=== PATIENT | female | born 1990 | race Caucasian/White ===

== ENCOUNTER 2017-06-13 20:35 | Emergency (ER) | payer SELFPAY ==
[~2017-06-13] VITALS: Ht 160 cm; Wt 202.4 kg
[2017-06-13] MEDS ORDERED: ALBUTEROL SULFATE 2.5 MG/3 ML ONE (21:16)
[2017-06-13 21:24] LABS: BASOPHILS # (AUTO) 0.03 x10^3/uL (0-0.1); BASOPHILS % (AUTO) 0 % (0-1); EOSINOPHILS # (AUTO) 0.08 x10^3/uL (0-0.4); EOSINOPHILS % (AUTO) 1 % (1-7); LYMPHOCYTES # (AUTO) 3.01 x10^3/uL (1-3.4); LYMPHOCYTES % (AUTO) 21 % (22-44); MD NO; MEAN CORPUSCULAR HEMOGLOBIN 27.6 pg (27.0-34.8); MEAN CORPUSCULAR HGB CONC 32.8 g/dL (32.4-35.8); MEAN CORPUSCULAR VOLUME 84.1 fL (80-100); MEAN PLATELET VOLUME 8.2 fL (7.4-10.4); MONOCYTES # (AUTO) 0.54 x10^3/uL (0.2-0.8); MONOCYTES % (AUTO) 4 % (2-9); NEUTROPHILS # (AUTO) 10.48 x10^3/uL (1.8-6.8); NEUTROPHILS % (AUTO) 74 % (42-75); PLATELET COUNT 319 x10^3/uL (130-400); RED BLOOD COUNT 4.32 x10^6/uL (3.82-5.3); RED CELL DISTRIBUTION WIDTH 15.3 % (9.6-15.2)
[2017-06-13] MEDS ORDERED: ALBUTEROL SULFATE 2.5 MG/3 ML NPPB ONE (21:30)
[2017-06-13] MEDS ORDERED: PLEASE ENTER ALLERGIES MC SCH (21:30)
[2017-06-13 21:35] LABS: ALBUMIN 3.4 g/dL (3.4-5.0); ANION GAP 11 mmol/L (5-15); CALCIUM 8.7 mg/dL (8.5-10.1); CHLORIDE 103 mmol/L (98-107); CREATININE 1.03 mg/dL (0.55-1.02)
[2017-06-13] MEDS ORDERED: ONDANSETRON ODT 4 MG ONE (22:39)
[2017-06-13] MEDS ORDERED: ONDANSETRON ODT 4 MG PO ONE (23:00)
[2017-06-13] MEDS ORDERED: ONDANSETRON 4 MG TABLET PO ONE (23:00)
[2017-06-14] MEDS ORDERED: OMNIPAQUE 350 MG/ML, 150 ML BOTTLE ONE (00:30)
[2017-06-14 00:52] LABS: TROPONIN I < 0.015 ng/mL (0.000-0.045)
[2017-06-14 03:28] VITALS: BP 128/78
[2017-06-14] MEDS ORDERED: ALBUTEROL/IPRATROPIUM 2.5MG/0.5MG, 3 ML NPPB ONE (03:30)
[2017-06-14] MEDS ORDERED: ALBUTEROL/IPRATROPIUM 2.5MG/0.5MG, 3 ML ONE (03:49)
== END 2017-06-13 23:56 | disposition home or self-care (01) ==
LOC: ED 21:00
DX: R06.00 Dyspnea, unspecified (principal); J45.901 Unspecified asthma with (acute) exacerbation; E11.9 Type 2 diabetes mellitus without complications
CPT/HCPCS: 36415; 71046; 80048; 82040; 85025; 93005; 94640; 99285; J7512; Q0162; 71275; 82962; 84484; J7613; J7620; Q9967